=== PATIENT | male | born 1970 | race African-American/Black ===

== ENCOUNTER 2023-11-10 21:38 | Inpatient (IN) | payer MEDICAID, OTHER ==
[~2023-11-10] VITALS: Ht 177.8 cm; Wt 86.6 kg
[2023-11-10 22:42] LABS: Basophils # (auto) 0.1 10 ^3/uL (0-0.2); Eosinophils # (auto) 0.1 10 ^3/uL (0-0.8); Eosinophils % (auto) 0.7 % (0.0-7.0); Hematocrit 44.7 % (41.0-53.0); Hemoglobin 15.5 g/dL (13.5-17.5); Lymphocytes # (auto) 3.2 10 ^3/uL (0.4-5.4); Mean Corpuscular Hemoglobin 29.9 pg (28.0-32.0); Mean Corpuscular Hgb Conc. 34.7 g/dL (32.0-36.0); Mean Corpuscular Volume 86.1 fL (80.0-100.0); Monocytes # (auto) 0.6 10 ^3/uL (0-1.3); Monocytes % (auto) 7.5 % (0.0-12.0); Neutrophils # (auto) 4.4 10 ^3/uL (1.6-8.6); Neutrophils % (auto) 52.8 % (37.0-80.0); Nucleated Red Blood Cells % 0.1 %; Red Cell Distribution Width 13.1 % (11.8-14.3); White Blood Cell 8.4 10^3/uL (4.4-10.8)
[2023-11-10 23:01] LABS: Alanine Aminotransferase 29 U/L (7-40); Albumin 4.1 g/dL (3.2-4.8); Alkaline Phosphatase 169 U/L (46-116); Anion Gap 9 (5-15); Aspartate Aminotransferase 20 U/L (13-40); BUN/Creatinine Ratio 10.4 (10.0-20.0); Blood Urea Nitrogen 14 mg/dL (9-23); Calcium 9.4 mg/dL (8.7-10.4); Carbon Dioxide 24 mmol/L (20-30); Chloride 100 mmol/L (98-107); Potassium 4.4 mmol/L (3.5-5.1); Sodium 133 mmol/L (136-145)
[2023-11-10 23:02] LABS: Bilirubin, Total 0.5 mg/dL (0.2-1.0); Total Protein 6.5 g/dL (5.7-8.2)
[2023-11-10 23:13] LABS: Glucose 445 mg/dL (74-106)
[2023-11-11] MEDS: SODIUM CHLORIDE 0.9% 1,000 ML IV ONE (00:10)
[2023-11-11] MEDS: InsuLIN REG 1unit/0.01ml Soln (100units/ml) IV ONE (00:11)
[2023-11-11] MEDS ORDERED: DEXTROSE (50%) 50ML SYRG IV PRN ×2 (01:00→01:15)
[2023-11-11] MEDS ORDERED: ONDANSETRON HCL 4 MG/2 ML VIAL IV PRN ×2 (01:00→01:15)
[2023-11-11] MEDS: InsuLIN REG 1unit/0.01ml Soln (100units/ml) SC SCH (03:31)
[2023-11-11] MEDS: ACCU-CHEK COMFORT CURVE STRIP VI SCH (03:31)
[2023-11-11] MEDS ORDERED: InsuLIN REG 1unit/0.01ml Soln (100units/ml) SC SCH (04:00)
[2023-11-11] MEDS ORDERED: ACCU-CHEK COMFORT CURVE STRIP VI SCH (04:00)
[2023-11-11 08:50] VITALS: PULSE 79; RESP 19; O2SAT 98
[2023-11-11 09:15] VITALS: PULSE 63; O2SAT 98
[2023-11-11] MEDS: SODIUM CHLORIDE 0.9% 1,000 ML IV SCH (10:02)
[2023-11-11] MEDS: INSULIN LANTUS (GLARGINE) 1 /0.01ml (100units/ml) SC ONE (13:56)
[2023-11-11] MEDS: hydrALAZINE HCL 20 MG/ML VL IV ONE ×2 (15:36→17:38)
[2023-11-11 17:15] VITALS: O2SAT 96
[2023-11-11 19:10] VITALS: BP 146/89; PULSE 77; RESP 12; TEMP 98
[2023-11-11] MEDS ORDERED: ATORVASTATIN 20 MG TAB PO SCH (22:00)
[2023-11-12] MEDS ORDERED: INSULIN LANTUS (GLARGINE) 1 /0.01ml (100units/ml) SC SCH (07:00)
[2023-11-12] MEDS ORDERED: amLODIPine BESYLATE 5 MG TAB PO SCH (10:00)
[2023-11-12] MEDS ORDERED: LISINOPRIL 20 MG TAB PO SCH (10:00)
== END 2023-11-11 21:10 | disposition left against medical advice (07) | DRG 420 ==
LOC: ER 21:38 → OVERFLOW 11-11 00:51 → ER 11-11 00:51
PROVIDERS: ADMIT Internal Medicine Geriatric Medicine; ATTEND Internal Medicine Geriatric Medicine
DX: E11.65 Type 2 diabetes mellitus with hyperglycemia (principal); E11.22 Type 2 diabetes mellitus with diabetic chronic kidney disease; E78.5 Hyperlipidemia, unspecified; E86.0 Dehydration; I12.9 Hypertensive chronic kidney disease with stage 1 through stage 4 chronic kidney disease, or unspecified chronic kidney disease; Z53.29 Procedure and treatment not carried out because of patient's decision for other reasons; N18.2 Chronic kidney disease, stage 2 (mild); Z90.49 Acquired absence of other specified parts of digestive tract
CPT/HCPCS: 36415; 80053; 82010; 82962; 83036; 83605; 83690; 84484; 85025; 96361; 96374; G0378; J1815